=== PATIENT | female | born 1950 | race Caucasian/White ===

== ENCOUNTER 2024-04-17 08:28 | Emergency (ER) | payer MEDICARE, SELFPAY ==
--- NOTE | 2024-04-17 09:00 | XR_ITS ---
Examination: PA lateral chest 2 views TECHNIQUE: Upright PA lateral chest 2 views Exam date and time: April 17, 2024 0913 hours INDICATIONS: Fever beginning 2 days ago. FINDINGS: More pronounced parenchymal disease in the lingular segment left upper lobe Normal heart size Lungs are clear IMPRESSION: Suspicious for pneumonia in the lingular segment left upper lobe
--- NOTE | 2024-04-17 09:05 | EDRME_ITS ---
Rapid Medical Screening Exam [facility] Arrival date/time: 04/17/24 08:28 74-year-old female with a history of asthma, hyperlipidemia, and a chronic smoker of 20 years presents to the emergency room with a chief complaint of shortness of breath, fevers, congestion x 2 weeks. Patient states she has been seen by her primary care provider and has failed multiple treatments for her pneumonia. I have greeted and performed a focused initial assessment of this patient. A comprehensive ED assessment and evaluation of the patient, analysis of all test results, and completion of the medical decision making process will be conducted by additional ED providers. Chief Complaint: Shortness of Breath/Dyspnea Vital signs reviewed by provider: Yes
[2024-04-17 09:11] VITALS: BP 106/69; PULSE 107; RESP 20; TEMP 37.1; O2SAT 94; BMI 23.7
[2024-04-17 09:34] LABS: Basophils # (Auto) 0.1 Thou/mm3 (0.0-0.2); Basophils % (Auto) 1 % (0-2.5); Eosinophils # (Auto) 0.1 Thou/mm3 (0.0-0.5); Eosinophils % (Auto) 1 % (0-10); Hematocrit 44.1 % (36.0-46.0); Immature Granulocytes % (Auto) 0 % (0-0); Immature Granulocytes Auto 0.03 Thou/mm3 (0.00-0.00); Lymphocytes # (Auto) 2.6 Thou/mm3 (1.0-4.8); Lymphocytes % (Auto) 25 % (10-50); Mean Corpuscular Hemoglobin 29.9 pg (25.0-35.0); Mean Corpuscular Volume 88 fL (80-100); Monocytes % (Auto) 10 % (0-12); Neutrophils # (Auto) 6.5 Thou/mm3 (1.8-7.7); Neutrophils % (Auto) 63 % (37-80); Nucleated Red Blood Cell % 0 /100 WBC (0); Platelet Count 251 Thou/mm3 (140-440); RDW Standard Deviation 47.2 fL (36.4-46.3); Red Blood Count 5.01 Miln/mm3 (4.00-5.20); White Blood Count 10.3 Thou/mm3 (3.6-11.0)
[2024-04-17] MEDS: DEXAMETHASONE SOD PHOS INJ 10 MG/ML VIAL PO (09:47)
[2024-04-17 09:52] LABS: Alanine Aminotransferase 13 U/L (10-49); Albumin, Serum 4.6 gm/dL (3.4-4.8); Albumin/Globulin Ratio 1.7 (1.2-2.2); Alkaline Phosphatase 85 U/L (46-116); Anion Gap 7 (7-16); Aspartate Amino Transferase 14 U/L (0-34); BUN/Creatinine Ratio 11 Ratio (12-20); Bilirubin,Total 0.5 mg/dL (0.3-1.2); Blood Urea Nitrogen 9 mg/dL (9-23); Calcium 9.7 mg/dL (8.3-10.6); Calcium (Corrected) 9.7 mg/dL (8.5-10.1); Carbon Dioxide 27.2 mMol/L (20.0-31.0); Chloride 104 mMol/L (98-107); Creatinine (Component) 0.8 mg/dL (0.6-1.3); Estimated Creatinine Clearance 61.8 mL/min (>60); Globulin 2.7 gm/dL (2.3-3.5); Glucose 168 mg/dL (74-106); Osmolality,Calculated 278 (275-295); Sodium 138 mMol/L (136-145); Total Protein 7.3 gm/dL (5.7-8.2); eGFR > 60 See Note
--- NOTE | 2024-04-17 10:02 | EDNOTE_ITS ---
ED SOB =RME/HPI General Chief Complaint: Shortness of Breath/Dyspnea Stated Complaint: SOB X 20 days, had PNA, fever Time Seen by Provider: 04/17/24 09:58 Source: patient Arrival date/time: 04/17/24 08:28 74-year-old female with a history of asthma, hyperlipidemia, and a chronic smoker of 20 years presents to the emergency room with a chief complaint of shortness of breath, fevers, congestion x 2 weeks. Patient states she has been seen by her primary care provider and has failed multiple treatments for her pneumonia. Mode of arrival: ambulatory Limitations: no limitations RME / HPI RME / HPI Narrative: 04/17/24 08:28 74-year-old female with a history of asthma, hyperlipidemia, and a chronic smoker of 20 years presents to the emergency room with a chief complaint of shortness of breath, fevers, congestion x 2 weeks. Patient states she has been seen by her primary care provider and has failed multiple treatments for her pneumonia. I have greeted and performed a focused initial assessment of this patient. A comprehensive ED assessment and evaluation of the patient, analysis of all test results, and completion of the medical decision making process will be conducted by additional ED providers. Related Data Home Medications ?Medication ?Instructions ?Recorded ?Confirmed estradiol 0.01% (0.1 mg/gram) 2 g vaginal DIRECTED 11/15/22 01/14/23 vaginal cream (Estrace) ibuprofen 200 mg tablet 200 mg PO QDAY PRN 11/15/22 01/14/23 losartan 25 mg tablet 25 mg PO QDAY 11/15/2201/14 [id number]-[id number] 8 mg-folic 400 1 tab PO QDAY 01/14/23 mcg-K 50 mcg-lutein 300 mcg tablet (Centrum Silver Women) nitrofurantoin 100 mg PO QDAY 11/15/2201/02 monohydrate/macrocrystals 100 mg capsule (Macrobid) rosuvastatin 10 mg tablet (Crestor) 10 mg PO QDAY 11/0201/14/23 sertraline 25 mg tablet (Zoloft) 25 mg PO QDAY 3 01/14/23 Previous Rx's ?Medication ?Instructions ?Recorded acetaminophen 325 mg capsule 650 mg (2 x 325 mg) PO QI D PRN 04/17/24 fever or pain 7 days #30 caps albuterol sulfate 90 mcg/actuation 2 inh inhalation Q6 H PRN shortness 04/17/24 breath activated powder inhaler of breath or wheezing #1 ea benzonatate 100 mg capsule 100 mg PO BID PRN cough #14 caps 04/17/24 Allergies Allergy/AdvReac Type Severity Reaction Status Date / Time metronidazole Allergy Unknown ITCHING Verified 04/17/24 10:47 levaquin Allergy Unknown unknown Uncoded 04/17/24 10:47 Review of Systems Review of Systems Systems Reviewed: All systems reviewed, normal except as documented Constitutional Constitutional: Reports system reviewed and no additional complaints, except as documented, Denies fatigue, Reports fever(s), Denies headache(s) and Reports weakness Eyes Eyes: Reports system reviewed and no additional complaints, except as documented, Denies blurry vision and Denies change in vision ENT Ears, Nose, Mouth, and Throat: Reports system reviewed and no additional complaints, except as documented, Denies otalgia, Denies headache(s), Denies nasal congestion, Denies throat swelling and Denies vertigo Cardiovascular Cardiovascular: Reports system reviewed and no additional complaints, except as documented, Denies chest pain, Reports dyspnea and Reports dyspnea on exertion Respiratory Respiratory: Reports system reviewed and no additional complaints, except as documented, Reports chest congestion, Reports cough, Reports dyspnea, Reports dyspnea on exertion, Reports excessive phlegm production, Denies hemoptysis, Denies pain on inspiration and Reports wheezing Gastrointestinal Gastrointestinal: Reports system reviewed and no additional complaints, except as documented, Denies abdominal pain, Denies cramping, Denies nausea and Denies vomiting Genitourinary Genitourinary: Reports system reviewed and no additional complaints, except as documented Musculoskeletal Musculoskeletal: Reports system reviewed and no additional complaints, except as documented and Denies back pain Integumentary/Breasts Skin/Breast: Reports system reviewed and no additional complaints, except as documented and Denies wounds Neurologic Neurologic: Reports system reviewed and no additional complaints, except as documented, Denies confusion, Denies headache(s), Denies lack of coordination, Denies vertigo and Reports weakness Psychiatric Psychiatric: Reports system reviewed and no additional complaints, except as documented, Denies anxiety, Denies confusion, Denies depression, Denies paranoia, Denies suicidal ideation and Denies tactile hallucinations Endocrine Endocrine: Reports system reviewed and no additional complaints, except as documented and Denies fatigue Hematologic/Lymphatic Hematologic/Lymphatic: Reports system reviewed and no additional complaints, except as documented and Denies lymphadenopathy Allergic/Immunologic Allergic/Immunologic: Reports system reviewed and no additional complaints, except as documented, Denies throat swelling, Denies urticaria and Reports wheezing ED Exam General Limitations: Present no limitations General appearance: Present alert and in no apparent distress Head Head exam: Present atraumatic Eye Eye exam: Present normal appearance, PERRL and EOMI ENT ENT exam: Present normal exam, normal oropharynx and mucous membranes moist Neck Neck exam: Present normal inspection, full ROM and trachea midline Chest Chest inspection: Present normal inspection and symmetric chest wall rise Respiratory Respiratory exam: Present normal lung sounds bilaterally and wheezes; Absent respiratory distress, stridor, accessory muscle use or prolonged expiratory phase Expanded Respiratory Exam Location: Left: wheezes, Right: wheezes, Upper: wheezes and Lower: wheezes Cardiovascular Cardiovascular exam: Present regular rate, normal rhythm, tachycardia and normal heart sounds; Absent bradycardia or irregular rhythm Abdominal Exam Abdominal exam: Present soft and normal bowel sounds; Absent tenderness Extremities Exam Extremities exam: Present normal inspection and full ROM Back Exam Back exam: Present normal inspection and full ROM Neurological Exam Neurological exam: Present alert, oriented X3 and CN II-XII intact Psychiatric Psychiatric exam: Present normal affect and normal mood Skin Skin exam: Present warm, dry, intact and normal color Course Quality Measures none Orders Category Date Time Status Bedside COVID-19 Antigen Test NOW Care 04/17/24 09:00 Active Bedside Influenza A&B Antigen Test NOW Care 04/17/24 09:00 Completed XR chest 2V Stat Exams 04/17/24 09:00 Completed CBC Stat Lab 04/17/24 09:10 Completed CMP [Comprehensive Metabolic Panel] Stat Lab 04/17/24 09:10 Completed Magnesium Stat Lab 04/17/24 09:10 Completed Albuterol/Ipratr Rt Najma [Duoneb Rt Najma] Med 04/17/24 09:00 Discontinued 3 ml INH X1 ONE Dexamethasone Inj [Decadron Inj] Med 04/17/24 09:00 Discontinued 10 mg PO X1 ONE Vital Signs Vital signs: Vital Signs Temperature 98.7 F 04/17/24 09:11 Pulse Rate 107 H 04/17/24 09:11 Respiratory Rate 20 04/17/24 09:11 Blood Pressure 106/69 04/17/24 09:11 Pulse Oximetry (%) 94 L 04/17/24 09:11 Oxygen Delivery Method Room Air 04/17/24 09:11 O2 saturation 94% on room air Procedures -ED Smoking Cessation Time Spent Discussing Smoking Cessation w/Patient (min): 3 Patient Acknowledges Need for Cessation: Yes Shortness of Breath / Dyspnea MDM Narrative MDM Narrative:: 74-year-old female with a history of asthma, hyperlipidemia, and a chronic smoker of 20 years presents to the emergency room with a chief complaint of shortness of breath, fevers, congestion x 2 weeks. Patient states she has been seen by her primary care provider and has failed multiple treatments for her pneumonia. Patient is hemodynamically stable and in no apparent distress. Patient is afebrile, she is not tachypneic, and O2 saturation on room air with exertion is 94%. Physical examination shows bilateral wheezing to the upper and lower lobes. A breathing treatment was completed as well as steroids with improvement to the patient's symptoms. Patient tested positive for COVID-19. Chest x-ray shows bilateral pneumonia. This is a viral pneumonia caused by COVID-19. The patient states she has been on antibiotics for the last 2 weeks with no improvement to her symptoms. Curb 65 score is 1. Patient is nontoxic-appearing she is not using any accessory muscle use. She is a GCS of 15. There is no confusion no tachypnea and her oxygen saturation is 94% on room air with exertion. Patient is a every day smoker of 20 years. Patient denies any COPD. Smoking cessation education was given but patient states the smoking is not causing this. Patient was discharged and educated to follow-up with primary care provider and return to the emergency room for any evidence of worsening signs or symptoms Patient data External records reviewed:: [facility] previous records Clinical information provided by:: patient Social determinants that could affect healthcare access:: none Patient has the following chronic illnesses:: No chronic illnesses How is presenting disease/condition affected by chronic disease/condition?: no chronic disease Evaluation data The following diagnostics were reviewed and interpreted by me:: lab results and radiology exam(s) Lab and/or radiology exams considered but not ordered:: Labs and radiology exams considered and ordered Interpretation Summary: Chest [id number]: More pronounced parenchymal disease in the lingular segment left upper lobe Normal heart size Lungs are clear IMPRESSION: Suspicious for pneumonia in the lingular segment left upper lobe Medications / Prescriptions Medications or Prescriptions considered but not ordered:: Medication given Medication administrations:: Medication Administration History Discontinued Medications Albuterol/Ipratropium (Albuterol/Ipratropium (Duoneb) Rt Najma 3 Ml Nebu) 3 ml INH X1 ONE Stop: 04/17/24 09:01 Last Admin: 04/17/24 10:54 Dose: 3 ml Documented By: RG Dexamethasone Sodium Phosphate (Dexamethasone Sod Phos Inj 10 Mg/Ml Vial) 10 mg PO X1 ONE Stop: 04/17/24 09:01 Last Admin: 04/17/24 09:47 Dose: 10 mg Documented By: OA Medication given Consultations Consultation(s) initiated? (list below): No Diagnosis Shortness of Breath Differential Diagnosis: acute exacerbation of chronic obstructive airways disease, community acquired pneumonia, asthma with exacerbation and other (COVID-19/influenza/upper respiratory infection) Most likely diagnosis given after review of the tests above:: COVID-19 Admission Indicated Admission indicated?: not indicated Admission Request Was there a request for admission?: No Disposition Plan Disposition Plan: Discharge Discharge Attestation Discharge Attestation: The patient and all family members were given an opportunity to ask questions and understood the discharge instructions. Discharge instructions specifically effects, indications for sooner follow up or return to the emergency department, and the expected course of current diagnosis. Patient condition: Stable Discharge Plan Plan Patient Disposition: HOME (Self Care) Disposition Comment: Stable Prescriptions/Referrals Prescriptions/Med Rec: New albuterol sulfate 90 mcg/actuation aerosol powdr breath activated 2 inh inhalation Q6H PRN (Reason: shortness of breath or wheezing) Qty: 1 0RF benzonatate 100 mg capsule 100 mg PO BID PRN (Reason: cough) Qty: 14 0RF acetaminophen 325 mg capsule 650 mg PO QID PRN (Reason: fever or pain) 7 Days Qty: 30 0RF No Action rosuvastatin [Crestor] 10 mg tablet 10 mg PO QDAY losartan 25 mg tablet 25 mg PO QDAY sertraline [Zoloft] 25 mg tablet 25 mg PO QDAY Centrum Silver Women 8 mg iron-400 mcg-50 mcg tablet 1 tab PO QDAY ibuprofen 200 mg tablet 200 mg PO QDAY PRN nitrofurantoin monohyd/m-cryst [Macrobid] 100 mg capsule 100 mg PO QDAY Rx Instructions: must administer with a meal/food estradiol [Estrace] 0.01 % (0.1 mg/gram) cream 2 g vaginal DIRECTED Patient Comments: twice a week Referrals: Julio Cesar Cee MD [Primary Care Provider] - In 1 week Problem List Clinical Impression: COVID-19 Patient/Caregiver Discharge Instructions Education Materials: 2019-nCoV, COVID-19 Prevention Additional Instructions: Please follow-up with your primary care provider in the next 24 to 48 hours. You tested positive for COVID-19. Medication was sent to your pharmacy to help you with your symptoms. For any evidence of worsening signs or symptoms return to the emergency room immediately Print Language: Welsh Stand Alone Forms: Yaima Award Info., Patient Portal Info Letter PA/DECORATIVE ENGRAVER APPRENTICE Supervising Physician LOURDES/ADOLFO Supervising Physician: Dr Gibson
[2024-04-17] MEDS: ALBUTEROL/IPRATROPIUM (Duoneb) RT SOL 3 ML NEBU INH (10:54)
[2024-04-17 10:58] VITALS: PULSE 102; RESP 16; O2SAT 98
== END 2024-04-17 12:20 | disposition home or self-care (01) ==
PROVIDERS: Nurse Practitioner Family; Emergency Provider Emergency Medicine; PCP Family Medicine
DX: U07.1 COVID-19 (principal)
CPT/HCPCS: 36415; 71046; 80053; 83735; 85025; 87400; 87811; 94640; 99283; A9270; J1100

== ENCOUNTER → 2024-05-01 | Outpatient (CLI) | payer MEDICARE, SELFPAY ==
[2024-05-01 15:03] LABS: Collection Type, Urine Clean Catch
[2024-05-01 17:08] LABS: Bilirubin,Urine Negative (Negative); Blood,Urine Negative (Negative); Clarity,Urine Clear (Clear/Hazy); Color,Urine Lt-Yellow (Lt Yel-Yel); Glucose, Urine Negative (Negative); Ketones,Urine Negative (Negative); Leukocyte Esterase,Urine Positive (Negative); Nitrite,Urine Negative (Negative); PH,Urine 5.5 (5.0-7.0); Protein,Urine Negative (Neg - Trace); RBC,Urine 4 /hpf (0-3); Specific Gravity,Urine 1.017 (1.001-1.035); Squamous Epithelial Cell,Urine 7 /hpf (0-5); Urobilinogen,Urine Negative mg/dL (0.0-1.0); WBC,Urine 8 /hpf (0-5)
== END | disposition home or self-care (01) ==
LOC: SLDO 14:58
PROVIDERS: Referring Provider Internal Medicine; Visit Provider Internal Medicine
DX: R30.0 Dysuria (principal)
CPT/HCPCS: 81001; 87077; 87086; 87186

== ENCOUNTER → 2024-06-01 | Outpatient (CLI) | payer MEDICARE, SELFPAY ==
--- NOTE | 2024-06-01 15:25 | XR_ITS ---
Examination: PA lateral chest 2 views TECHNIQUE: Upright PA lateral chest 2 views Exam date and time: June 01, 2024 1536 hours INDICATIONS: Pneumonia history beginning 3 months ago. FINDINGS: Significant opacity left base posteriorly, masslike Right lung clear Normal heart size IMPRESSION: Recommend CT chest without contrast follow-up to assess dense opacity left base
== END | disposition home or self-care (01) ==
PROVIDERS: PCP Family Medicine; Referring Provider Nurse Practitioner Family; Visit Provider Nurse Practitioner Family
DX: R91.8 Other nonspecific abnormal finding of lung field (principal)
CPT/HCPCS: 71046

== ENCOUNTER → 2024-07-07 | Outpatient (CLI) | payer MEDICARE, SELFPAY ==
[2024-07-07 09:34] LABS: Basophils # (Auto) 0.1 Thou/mm3 (0.0-0.2); Basophils % (Auto) 1 % (0-2.5); Eosinophils # (Auto) 0.8 Thou/mm3 (0.0-0.5); Eosinophils % (Auto) 11 % (0-10); Hematocrit 43.7 % (36.0-46.0); Hemoglobin 14.5 g/dL (12.0-16.0); Immature Granulocytes % (Auto) 0 % (0-0); Immature Granulocytes Auto 0.01 Thou/mm3 (0.00-0.00); Lymphocytes # (Auto) 3.2 Thou/mm3 (1.0-4.8); Lymphocytes % (Auto) 43 % (10-50); Mean Corpuscular HGB Conc 33.2 g/dl (31.0-37.0); Mean Corpuscular Hemoglobin 30.3 pg (25.0-35.0); Mean Corpuscular Volume 91 fL (80-100); Monocytes # (Auto) 0.5 Thou/mm3 (0.0-0.8); Monocytes % (Auto) 7 % (0-12); Neutrophils # (Auto) 2.8 Thou/mm3 (1.8-7.7); Neutrophils % (Auto) 38 % (37-80); Nucleated Red Blood Cell % 0 /100 WBC (0); Platelet Count 270 Thou/mm3 (140-440); RDW Standard Deviation 47.9 fL (36.4-46.3); Red Blood Count 4.79 Miln/mm3 (4.00-5.20); White Blood Count 7.4 Thou/mm3 (3.6-11.0)
[2024-07-07 09:39] LABS: Glucose Estimated Average 134 mg/dL (80-131); Hemoglobin A1C 6.3 % Hgb (4.8-6.0)
[2024-07-07 09:50] LABS: Alanine Aminotransferase 12 U/L (10-49); Albumin, Serum 4.3 gm/dL (3.4-4.8); Albumin/Globulin Ratio 1.7 (1.2-2.2); Alkaline Phosphatase 89 U/L (46-116); Anion Gap 8 (7-16); Aspartate Amino Transferase 16 U/L (0-34); BUN/Creatinine Ratio 20 Ratio (12-20); Bilirubin,Total 0.6 mg/dL (0.3-1.2); Blood Urea Nitrogen 14 mg/dL (9-23); Calcium 9.1 mg/dL (8.3-10.6); Calcium (Corrected) 9.1 mg/dL (8.5-10.1); Carbon Dioxide 28.5 mMol/L (20.0-31.0); Chloride 107 mMol/L (98-107); Cholesterol 233 mg/dL (132-200); Creatinine (Component) 0.7 mg/dL (0.6-1.3); Globulin 2.6 gm/dL (2.3-3.5); Glucose 108 mg/dL (74-106); HDL Cholesterol 58 mg/dL (40-60); LDL Cholesterol,Calculated 141 mg/dL (0-130); Osmolality,Calculated 286 (275-295); Potassium 3.9 mMol/L (3.4-5.1); Sodium 143 mMol/L (136-145); Thyroid Stimulating Hormone 2.21 uIU/mL (0.55-4.78); Total Protein 6.9 gm/dL (5.7-8.2); Triglycerides 168 mg/dL (30-150); eGFR > 60 See Note
[2024-07-07 09:54] LABS: T4 (Thyroxine) 6.5 mcg/dL (4.5-10.9)
[2024-07-14 06:42] LABS: Immunoglobulin A 166 mg/dL (70-320); tTG Ab, IgA <1.0 U/mL
== END | disposition home or self-care (01) ==
LOC: COPL 08:12
PROVIDERS: PCP Family Medicine; Referring Provider Family Medicine; Visit Provider Family Medicine
DX: J18.9 Pneumonia, unspecified organism (principal); K90.0 Celiac disease; I10 Essential (primary) hypertension; E11.9 Type 2 diabetes mellitus without complications
CPT/HCPCS: 36415; 80053; 80061; 82784; 83036; 84436; 84443; 85025; 86364

== ENCOUNTER → 2024-07-16 | Outpatient (CLI) | payer MEDICARE, SELFPAY | END | disposition home or self-care (01) | LOC: SLDO 09:23 | PROVIDERS: Referring Provider Family Medicine; Visit Provider Family Medicine | DX: J18.9 Pneumonia, unspecified organism (principal) | CPT/HCPCS: 87205 ==

== ENCOUNTER → 2024-07-21 | Outpatient (CLI) | payer MEDICARE, SELFPAY ==
--- NOTE | 2024-07-21 10:00 | XR_ITS ---
Examination: CT chest, without intravenous contrast. Sagittal and coronal 2-D reconstructions. Exam date and time: July 21, 2024 0956 hours Comparison October 03, 2020 INDICATIONS: Post Covid pneumonia April 2024 persistent coughing and shortness of breath, significant opacity left base posteriorly masslike on chest film June 01, 2024 CTDI:vol (mGy) 9 DLP: (mGycm) 345 Technique: Multiple 3.0 mm axial sections of the chest to been obtained. Bone and lung density settings are obtained. Sagittal and coronal 2-D reconstructions have been obtained. Low dose protocols were performed. One or more of the following dose reduction techniques were used; automated exposure control, adjustment of the mA and/or KV according to patient size, use of iterative reconstruction technique. Findings: No thoracic aortic aneurysm dilatation Pulmonary artery segments are not enlarged Moderate calcification left anterior descending coronary artery No paratracheal tracheobronchial or bronchopulmonary adenopathy 2 mm pulmonary nodule right upper lobe image 67 2 mm pulmonary nodule right upper lobe image 79 No lobar pneumonia or pulmonary mass in the left lower lobe or elsewhere No visualized liver or splenic lesion Absent gallbladder No pancreatic mass No hydronephrosis IMPRESSION: Subcentimeter noncalcified pulmonary nodules, with this study as baseline recommend continued 6 month follow-up CT chest without contrast No pulmonary mass or pneumonia in the left lower lobe or elsewhere identified
== END | disposition home or self-care (01) ==
LOC: CCTX 09:33
PROVIDERS: PCP Family Medicine; Referring Provider Student in an Organized Health Care Education/Training Program; Visit Provider Student in an Organized Health Care Education/Training Program
DX: R91.8 Other nonspecific abnormal finding of lung field (principal)
CPT/HCPCS: 71250

== ENCOUNTER → 2024-09-26 | Outpatient (CLI) | payer MEDICARE, SELFPAY ==
--- NOTE | 2024-09-26 14:45 | XR_ITS ---
Examination: MRI orbit face neck, without contrast Date and time of exam: September 26, 2024, 1517 hours, comparison August 16, 2008 INDICATIONS: Left-sided lump in the neck noticed beginning one month ago Technique: Multiple axial sagittal and coronal images of the orbits face neck have been obtained with the Siemens high-resolution 1.5 Yana MRI scanner. Images obtained include T2-weighted fat-suppressed sagittal sections, TR 3500, TE 46, T2 weighted coronal fat suppressed images, TR 3050, TE 84, T2-weighted transverse fat suppressed images, TR 3260, TE 63, proton density transverse images, TR 4720 TE 46, and T1 weighted coronal images, TR 560, TE 13. Findings: Prominent maxillary sinusitis as well as ethmoid frontal and sphenoid sinusitis All of the images are degraded by patient motion Gross symmetry of the nasopharynx oropharynx Subcentimeter carotid triangle lymph nodes The larynx appears normal Symmetrical thyroid lobes Normal epiglottis No prevertebral soft tissue prominence IMPRESSION: The entire study is significantly limited by patient motion Recommend shorter scan time CT soft tissue neck with intravenous contrast follow-up for best diagnostic assessment
== END | disposition home or self-care (01) ==
LOC: SMRI 14:00
PROVIDERS: Referring Provider Internal Medicine; Visit Provider Internal Medicine
DX: R22.1 Localized swelling, mass and lump, neck (principal)
CPT/HCPCS: 70540

== ENCOUNTER → 2024-10-28 | Outpatient (CLI) | payer MEDICARE, SELFPAY ==
--- NOTE | 2024-10-28 11:00 | XR_ITS ---
Examination: CT soft tissue neck, without intravenous contrast. 2-D coronal reconstructions. 2-D sagittal reconstructions. Date and time of exam :October 28, 2024, 1110 hours, comparison August 02, 2008 INDICATIONS: Patient states left neck lump noticed beginning September 2024. CTDI: vol (mGy):15.2 DLP: (mGycm):472 Technique: 1.25 mm axial sections of the neck of the obtained. Coronal and sagittal reconstructions have been obtained. . Low dose protocols were performed. One or more of the following dose reduction techniques were used; automated exposure control, adjustment of the mA and/or KV according to patient size, use of iterative reconstruction technique. Findings: Significant maxillary antral sphenoid sinusitis Symmetrical submandibular glands Heavy left carotid vascular calcification Nonspecific carotid triangle submental lymphadenopathy Symmetrical parotid glands The larynx appears normal Thyroid lobes are not enlarged Normal epiglottis Significant disc narrowing C4-C5, C5-C6 IMPRESSION: Nonspecific cervical lymphadenopathy Recommend ultrasound soft tissue neck follow-up at the area of concern
--- NOTE | 2024-10-28 11:30 | XR_ITS ---
Examination: CT left shoulder, without contrast. 2-D sagittal reconstructions. 2-D coronal reconstructions. 3-D reconstructions. Date and time of exam:October 28, 2024, 11:07 AM INDICATIONS: Localized swelling and lump in the neck and around the clavicle noticed beginning September 2024 CTDI: vol (mGy):9.23 DLP: (mGycm):196 Technique: Multiple 1.25 mm axial sections of the left shoulder have been obtained. 2-D sagittal and coronal reconstructions have been obtained. 3-D reconstructions have been obtained. Low dose protocols were performed. One or more of the following dose reduction techniques were used; automated exposure control, adjustment of the mA and/or KV according to patient size, use of iterative reconstruction technique. Findings: Mild narrowing glenohumeral joint Mild left shoulder calcific tendinitis No fracture or shoulder dislocation. Moderate osteoarthritis at the left sternoclavicular joint No cortical bone destruction IMPRESSION: Mild osteoarthritis glenohumeral joint Mild left shoulder calcific tendinitis Moderate osteoarthritis left sternoclavicular joint
== END | disposition home or self-care (01) ==
LOC: CCTX 10:45
PROVIDERS: PCP Family Medicine; Referring Provider Student in an Organized Health Care Education/Training Program; Visit Provider Student in an Organized Health Care Education/Training Program
DX: M19.012 Primary osteoarthritis, left shoulder (principal); M75.32 Calcific tendinitis of left shoulder; M19.09 Primary osteoarthritis, other specified site; R59.0 Localized enlarged lymph nodes
CPT/HCPCS: 70490; 73200

== ENCOUNTER 2024-12-12 21:47 | Emergency (ER) | payer MEDICARE, SELFPAY ==
[2024-12-12 21:50] VITALS: BP 142/78; PULSE 104; RESP 17; TEMP 36.8; O2SAT 93
--- NOTE | 2024-12-12 22:22 | EKG_ITS ---
[facility] Test Date: 2024-12-12 Pat Name: BREONNA BHAKTA Department: Room: - Gender: Female Bench Assembly Inspector: : 1950 Requested By: Bg Harris Order Number: [id number] Reading MD: Bg Harris Measurements Intervals [place] Rate: 99 P: 72 [place]: 184 QRS: 74 QRSD: 86 T: 77 QT: 315 QTc: 404 Interpretive Statements SINUS RHYTHM No previous ECG available for comparison /store/S0/[id number]
[2024-12-12 22:58] LABS: Basophils # (Auto) 0.1 Thou/mm3 (0.0-0.2); Basophils % (Auto) 1 % (0-2.5); Eosinophils # (Auto) 0.2 Thou/mm3 (0.0-0.5); Eosinophils % (Auto) 1 % (0-10); Hematocrit 45.4 % (36.0-46.0); Hemoglobin 14.8 g/dL (12.0-16.0); Immature Granulocytes Auto 0.06 Thou/mm3 (0.00-0.00); Lymphocytes # (Auto) 4.1 Thou/mm3 (1.0-4.8); Lymphocytes % (Auto) 35 % (10-50); Mean Corpuscular HGB Conc 32.6 g/dl (31.0-37.0); Mean Corpuscular Hemoglobin 29.4 pg (25.0-35.0); Mean Corpuscular Volume 90 fL (80-100); Monocytes # (Auto) 0.6 Thou/mm3 (0.0-0.8); Monocytes % (Auto) 5 % (0-12); Neutrophils # (Auto) 6.6 Thou/mm3 (1.8-7.7); Neutrophils % (Auto) 57 % (37-80); Nucleated Red Blood Cell # 0.00 Thou/mm3 (0.00-0.00); Nucleated Red Blood Cell % 0 /100 WBC (0); Platelet Count 290 Thou/mm3 (140-440); RDW Standard Deviation 44.7 fL (36.4-46.3); Red Blood Count 5.04 Miln/mm3 (4.00-5.20); White Blood Count 11.6 Thou/mm3 (3.6-11.0)
[2024-12-12 23:13] LABS: INR 0.9 (0.9-1.3); Partial Thromboplastin Time 29.6 Seconds (22.0-36.0); Prothrombin Time 10.0 Seconds (9.0-12.2)
[2024-12-12 23:15] LABS: B-Type Natriuretic Peptide < 20 pg/mL (0-100)
[2024-12-12 23:16] LABS: Alanine Aminotransferase 15 U/L (10-49); Albumin, Serum 5.0 gm/dL (3.4-4.8); Albumin/Globulin Ratio 1.7 (1.2-2.2); Alkaline Phosphatase 90 U/L (46-116); Anion Gap 10 (7-16); Aspartate Amino Transferase 24 U/L (0-34); BUN/Creatinine Ratio 13 Ratio (12-20); Bilirubin,Total 0.3 mg/dL (0.3-1.2); Blood Urea Nitrogen 10 mg/dL (9-23); Calcium 10.0 mg/dL (8.3-10.6); Calcium (Corrected) 10.0 mg/dL (8.5-10.1); Carbon Dioxide 24.0 mMol/L (20.0-31.0); Chloride 105 mMol/L (98-107); Creatinine (Component) 0.8 mg/dL (0.6-1.3); Globulin 2.9 gm/dL (2.3-3.5); Glucose 122 mg/dL (74-106); Magnesium 2.2 mg/dL (1.6-2.6); Osmolality,Calculated 277 (275-295); Potassium 4.3 mMol/L (3.4-5.1); Sodium 139 mMol/L (136-145); Total Protein 7.9 gm/dL (5.7-8.2); Troponin I < 0.020 ng/mL (0.0-0.045); eGFR > 60 See Note
--- NOTE | 2024-12-12 23:59 | PD.EDSOB ---
ED SOB =RME/HPI General Stated Complaint: SOB Time Seen by Provider: 12/12/24 22:20 Arrival date/time: 12/12/24 21:47 RME / HPI RME / HPI Narrative: DR. VALLE MAIN ED EVALUATION: Patient presents for reported public intoxication notes friend of 40 years recently , no reported chest pain, SOB, or syncope arrives for medical clearance and was cited by DPS to F/U with court system. No specific complaints this time. PMH: Asthma, HLD, PNA, COPD PSH: Non-contributory Allergies: Flagyl, Levaquin Social: Positive occasional alcohol, ongoing tobacco use, denies illicit drug abuse Related Data Home Medications ?Medication ?Instructions ?Recorded ?Confirmed estradiol 0.01% (0.1 mg/gram) 2 g vaginal DIRECTED 11/15/22 01/14/23 vaginal cream (Estrace) ibuprofen 200 mg tablet 200 mg PO QDAY PRN 11/15/22 01/14/23 losartan 25 mg tablet 25 mg PO QDAY 11/15/22 01/14/23 [id number] 8 mg-folic 400 1 tab PO QDAY 11/15/22 01/14/23 mcg-K 50 mcg-lutein 300 mcg tablet (Centrum Silver Women) nitrofurantoin 100 mg PO QDAY 11/15/22 01/14/23 monohydrate/macrocrystals 100 mg capsule (Macrobid) rosuvastatin 10 mg tablet (Crestor) 10 mg PO QDAY 11/15/22 01/14/23 sertraline 25 mg tablet (Zoloft) 25 mg PO QDAY 11/15/22 01/14/23 Previous Rx's ?Medication ?Instructions ?Recorded albuterol sulfate 90 mcg/actuation 2 inh inhalation Q6H PRN shortness 04/17/24 breath activated powder inhaler of breath or wheezing #1 ea benzonatate 100 mg capsule 100 mg PO BID PRN cough #14 caps 04/17/24 Allergies Allergy/AdvReac Type Severity Reaction Status Date / Time metronidazole Allergy Unknown ITCHING Verified 04/17/24 10:47 levaquin Allergy Unknown unknown Uncoded 04/17/24 10:47 Review of Systems Review of Systems Systems Reviewed: All systems reviewed, normal except as documented Past Medical History Past Medical History RESPIRATORY: Positive Chronic Obstructive Pulmonary Disease (COPD), Asthma and Pneumonia ED Exam Narrative Physical exam: GEN. APPEARANCE: The patient is alert awake oriented X-3 in no distress, lying down comfortably, does not look ill/toxic. Patient has good eye contact. Patient is cooperative. VITALS: All vitals were reviewed and the pulse ox is 92% on room air which is low according to my interpretation. HEENT: Normocephalic, atraumatic. Pupils are equal and reactive. Oral mucosa is moist. Patent Nares NECK: Supple, nontender, no thyromegaly, no meningismus, no JVD, no step offs CHEST: Symmetrical, atraumatic, and with equal expansion , Nontender on palpation no deformity and no crepitus. CARDIOVASCULAR: Heart regular rhythm no murmur or gallop rub or extra beats. LUNGS: Diminished breath sounds with symmetrical chest rise. No laboring tachypnea or wheezing. No intercostal subcostal retraction. No rales and no rhonchi. ABDOMEN: Soft, flat, nontender to palpation, no guarding or rebound tenderness. There are no abnormal masses palpated. Active and normal bowel sounds. EXTREMITIES: Nontender. No edema. No cyanosis. Patient is able to move all 4 extremities well, with full ROM and good CSM. SKIN: Warm and dry, no jaundice or rashes noted. Minor skin tears of upper extremities MUSCULOSKELETAL: No lubar or midline bony tenderness. There is no CVA tenderness. No paraspinal muscle spasm or tenderness. NEURO: Patient is KENYON x 4, Cranial nerves II through XII grossly intact. There is no focal neurologic deficits noted. GCS is 15, PNS and [employer] appear grossly intact. PSYCHIATRIC: Patient is in normal mood and affect, cooperative, no SI or HI or hallucinations. Course Quality Measures none Orders Category Date Time Status EKG (ED ONLY) *Do not use* NOW Care 12/12/24 22:22 Completed EKG (ED Only) Stat Exams 12/12/24 22:22 Draft Alcohol, Blood Medical Stat Lab 12/12/24 22:45 Completed B-Type Natriuretic Peptide Stat Lab 12/12/24 22:45 Completed Blood Culture (Lab) Stat Lab 12/12/24 22:45 Received CBC Stat Lab 12/12/24 22:45 Completed Comprehensive Metabolic Panel Stat Lab 12/12/24 22:45 Completed Drug Screen,Urine Stat Lab 12/12/24 22:22 Ordered Magnesium Stat Lab 12/12/24 22:45 Completed Partial Thromboplastin Time Stat Lab 12/12/24 22:45 Completed Prothrombin Time with INR Stat Lab 12/12/24 22:45 Completed Troponin I Stat Lab 12/12/24 22:45 Completed Urinalysis, C/S if Indicated Stat Lab 12/12/24 22:22 Ordered TET,DIP/PERT AC (Adult)-Tdap [Boostrix Adult (Tdap) Med 12/13/24 00:08 Discontinued Vacc] 0.5 ml IMI .ONCE ONE Vital Signs Vital signs: Vital Signs Temperature 98.2 F 12/12/24 21:50 Pulse Rate 104 H 12/12/24 21:50 Respiratory Rate 17 12/12/24 21:50 Blood Pressure 142/78 H 12/12/24 21:50 Pulse Oximetry (%) 93 L 12/12/24 21:50 Oxygen Delivery Method Room Air 12/12/24 21:50 Shortness of Breath / Dyspnea MDM Narrative MDM Narrative:: Scribe Attestation: Rachele Smith, joe scribing for and in the presence of Dr. Valle. Provider Notation: Although this document has been carefully reviewed, there may still be some phonetic and other typographical errors. These errors are purely grammatical due to imperfections in the software program and should not be construed in any way to compromise the substance of the patient's medical care during this visit. Patient presents for reported public intoxication notes friend of 40 years recently , no reported chest pain, SOB, or syncope arrives for medical clearance and was cited by DPS to F/U with court system. No specific complaints this time. Please see PE findings. Laboratory markers including CBC demonstrate marginally elevated WBC of 11.6, no anemia or thrombocytopenia. Serum chemistries essentially unremarkable. Troponin I undetected. Patient observed for several hours and remained neurological stable. No critical process identified at this time. Will release in custody of friend with precautionary instructions, and will update Tetanus. Patient data External records reviewed:: [facility] previous records (Reviewed prior ED records from 04/17/24. Patient was seen for COVID-19.) Clinical information provided by:: patient Social determinants that could affect healthcare access:: alcohol use Patient has the following chronic illnesses:: Chronic Obstructive Pulmonary Disease (COPD), Asthma and Pneumonia How is presenting disease/condition affected by chronic disease/condition?: exacerbated by Evaluation data The following diagnostics were reviewed and interpreted by me:: lab results and EKG tracing(s) (EKG at 23:48 shows normal sinus rhythm at 99, normal axis, no ectopy, no signs of acute ischemia, per my interpretation.) Lab and/or radiology exams considered but not ordered:: None Interpretation Summary: See MDM above Medications / Prescriptions Medications or Prescriptions considered but not ordered:: None Medication administrations:: Medication Administration History Discontinued Medications Diphtheria/Tetanus/Acell Pertussis (Diphth,Pertuss(Acell),Tet Vac 0.5 Ml Syr- Adult) 0.5 ml IMi .ONCE ONE Stop: 12/13/24 00:09 See above if any Consultations Consultation(s) initiated? (list below): No Diagnosis Shortness of Breath Differential Diagnosis: acute exacerbation of chronic obstructive airways disease, congestive heart failure, community acquired pneumonia and asthma with exacerbation Most likely diagnosis given after review of the tests above:: Alcohol intoxication, skin tear Admission Indicated Admission indicated?: not indicated Explain why admission is indicated or not indicated:: Patient does not meet admission criteria Admission Request Was there a request for admission?: No Disposition Plan Disposition Plan: Discharge Discharge Attestation Discharge Attestation: The patient and all family members were given an opportunity to ask questions and understood the discharge instructions. Discharge instructions specifically effects, indications for sooner follow up or return to the emergency department, and the expected course of current diagnosis. Patient condition: Stable Discharge Plan Plan Patient Disposition: HOME (Self Care) Prescriptions/Referrals Prescriptions/Med Rec: No Action rosuvastatin [Crestor] 10 mg tablet 10 mg PO QDAY losartan 25 mg tablet 25 mg PO QDAY sertraline [Zoloft] 25 mg tablet 25 mg PO QDAY Centrum Silver Women 8 mg iron-400 mcg-50 mcg tablet 1 tab PO QDAY ibuprofen 200 mg tablet 200 mg PO QDAY PRN nitrofurantoin monohyd/m-cryst [Macrobid] 100 mg capsule 100 mg PO QDAY Rx Instructions: must administer with a meal/food estradiol [Estrace] 0.01 % (0.1 mg/gram) cream 2 g vaginal DIRECTED Patient Comments: twice a week albuterol sulfate 90 mcg/actuation aerosol powdr breath activated 2 inh inhalation Q6H PRN (Reason: shortness of breath or wheezing) Qty: 1 0RF benzonatate 100 mg capsule 100 mg PO BID PRN (Reason: cough) Qty: 14 0RF Referrals: Julio Cesar Cee MD [Primary Care Provider, Family Practice] - In 1 week Problem List Clinical Impression: Alcohol intoxication, Skin tear Patient/Caregiver Discharge Instructions Education Materials: ED Alcohol Intoxication, ED Skin Avulsion Additional Instructions: Avoid excessive alcohol consumption, keep wounds clean and dry. Return if escalating headaches nausea and vomiting or worsening illness. Print Language: Tristanian Stand Alone Forms: [employer] Award Info., Patient Portal Info Letter
[2024-12-13 00:03] VITALS: BP 130/82; PULSE 119; RESP 18; TEMP 36.6; O2SAT 92
[2024-12-13 00:30] LABS: Alcohol, Blood Medical 176.2 mg/dL (0-10.0)
== END 2024-12-13 00:57 | disposition home or self-care (01) ==
PROVIDERS: Emergency Provider Emergency Medicine; PCP Family Medicine
DX: F10.129 Alcohol abuse with intoxication, unspecified (principal); Y90.9 Presence of alcohol in blood, level not specified; E78.5 Hyperlipidemia, unspecified; J44.89 Other specified chronic obstructive pulmonary disease; T14.8XXA Other injury of unspecified body region, initial encounter; X58.XXXA Exposure to other specified factors, initial encounter
CPT/HCPCS: 36415; 80053; 80307; 80320; 81001; 83735; 83880; 84484; 85025; 85610; 85730; 87040; 93005; 99283; G0480

== ENCOUNTER → 2024-12-16 | Outpatient (CLI) | payer MEDICARE, SELFPAY ==
--- NOTE | 2024-12-16 14:23 | XR_ITS ---
EXAMINATION: Left ribs and upright PA chest 5 views TECHNIQUE: Upright PA chest, AP, LPO, RPO, coned AP lower left ribs total 5 views Date and time: December, 1433 hours INDICATIONS: Patient fell 5 days ago with injury to the chest, left rib pain FINDINGS: Normal heart size No pneumothorax Significant osteopenia No acute rib fractures IMPRESSION: No pneumothorax pulmonary contusion or hemothorax No acute rib fractures
== END | disposition home or self-care (01) ==
LOC: CDIM 14:12
PROVIDERS: PCP Family Medicine; Referring Provider Family Medicine; Visit Provider Family Medicine
DX: S29.9XXA Unspecified injury of thorax, initial encounter (principal); W19.XXXA Unspecified fall, initial encounter
CPT/HCPCS: 71101

== ENCOUNTER 2025-03-01 16:28 | Emergency (ER) | payer MEDICARE, SELFPAY ==
[2025-03-01 16:43] VITALS: BP 155/83; PULSE 114; RESP 20; TEMP 36.8; O2SAT 95
--- NOTE | 2025-03-01 16:50 | PD.EDRME ---
Rapid Medical Screening Exam E Arrival date/time: 03/01/25 16:28 75-year-old female with no known medical history presents to the emergency room with a chief complaint of abdominal cramping x 2 days. Patient also states she has been unable to urinate for the last 2 days I have greeted and performed a focused initial assessment of this patient. A comprehensive ED assessment and evaluation of the patient, analysis of all test results, and completion of the medical decision making process will be conducted by additional ED providers. Chief Complaint: Urogenital-Female Time Seen by Provider: 03/01/25 20:40 Vital signs: Vital Signs Temperature 98.2 F 03/01/25 16:43 Pulse Rate 114 H 03/01/25 16:43 Respiratory Rate 20 03/01/25 16:43 Blood Pressure 155/83 H 03/01/25 16:43 Pulse Oximetry (%) 95 03/01/25 16:43 Oxygen Delivery Method Room Air 03/01/25 16:43 Vital signs reviewed by provider: Yes Exam: Lower abdominal tenderness with palpation Clear bilateral lung sounds Clinical Impression: Acute urinary retention/UTI
[2025-03-01 17:04] LABS: Collection Type, Urine Clean Catch
[2025-03-01 17:14] LABS: Basophils # (Auto) 0.1 Thou/mm3 (0.0-0.2); Basophils % (Auto) 1 % (0-2.5); Eosinophils # (Auto) 0.0 Thou/mm3 (0.0-0.5); Eosinophils % (Auto) 0 % (0-10); Hematocrit 43.7 % (36.0-46.0); Hemoglobin 14.4 g/dL (12.0-16.0); Immature Granulocytes Auto 0.03 Thou/mm3 (0.00-0.00); Lymphocytes # (Auto) 4.0 Thou/mm3 (1.0-4.8); Lymphocytes % (Auto) 34 % (10-50); Mean Corpuscular HGB Conc 33.0 g/dl (31.0-37.0); Mean Corpuscular Hemoglobin 29.6 pg (25.0-35.0); Mean Corpuscular Volume 90 fL (80-100); Monocytes # (Auto) 0.8 Thou/mm3 (0.0-0.8); Monocytes % (Auto) 6 % (0-12); Neutrophils # (Auto) 6.8 Thou/mm3 (1.8-7.7); Neutrophils % (Auto) 58 % (37-80); Nucleated Red Blood Cell # 0.00 Thou/mm3 (0.00-0.00); Nucleated Red Blood Cell % 0 /100 WBC (0); Platelet Count 269 Thou/mm3 (140-440); RDW Standard Deviation 46.3 fL (36.4-46.3); Red Blood Count 4.87 Miln/mm3 (4.00-5.20); White Blood Count 11.7 Thou/mm3 (3.6-11.0)
[2025-03-01 17:18] LABS: Bacteria,Urine Rare; Bilirubin,Urine Negative (Negative); Blood,Urine 1+ (Negative); Clarity,Urine Turbid (Clear/Hazy); Color,Urine Yellow (Lt Yel-Yel); Glucose, Urine Negative (Negative); Ketones,Urine Trace (Negative); Leukocyte Esterase,Urine Positive (Negative); Nitrite,Urine Negative (Negative); PH,Urine 5.5 (5.0-7.0); Protein,Urine Trace (Neg - Trace); RBC,Urine 6 /hpf (0-3); Specific Gravity,Urine 1.028 (1.001-1.035); Squamous Epithelial Cell,Urine 1 /hpf (0-5); Urobilinogen,Urine 2.0 mg/dL (0.0-1.0); WBC,Urine 29 /hpf (0-5)
[2025-03-01 17:29] LABS: Alanine Aminotransferase 11 U/L (10-49); Albumin, Serum 4.6 gm/dL (3.4-4.8); Albumin/Globulin Ratio 1.5 (1.2-2.2); Alkaline Phosphatase 102 U/L (46-116); Anion Gap 8 (7-16); Aspartate Amino Transferase < 8 U/L (0-34); BUN/Creatinine Ratio 16 Ratio (12-20); Bilirubin,Total 0.3 mg/dL (0.3-1.2); Blood Urea Nitrogen 13 mg/dL (9-23); Calcium 10.0 mg/dL (8.3-10.6); Calcium (Corrected) 10.0 mg/dL (8.5-10.1); Carbon Dioxide 25.8 mMol/L (20.0-31.0); Chloride 108 mMol/L (98-107); Creatinine (Component) 0.8 mg/dL (0.6-1.3); Globulin 3.0 gm/dL (2.3-3.5); Glucose 87 mg/dL (74-106); Lipase 36 U/L (12-53); Osmolality,Calculated 282 (275-295); Potassium 3.9 mMol/L (3.4-5.1); Sodium 142 mMol/L (136-145); Total Protein 7.6 gm/dL (5.7-8.2); eGFR > 60 See Note
[2025-03-01 20:30] VITALS: PULSE 84; TEMP 36.8; O2SAT 99
--- NOTE | 2025-03-01 20:39 | PD.EDFMALE ---
ED Female Urogenital RME/HPI General Chief complaint: Urogenital-Female Stated complaint: UNABLE TO URINATE,STABBING PAIN WHEN URINATING Time Seen by Provider: 03/01/25 20:40 Arrival date/time: 03/01/25 16:28 RME / HPI RME / HPI Narrative: 03/01/25 16:28 75-year-old female with no known medical history presents to the emergency room with a chief complaint of abdominal cramping x 2 days. Patient also states she has been unable to urinate for the last 2 days I have greeted and performed a focused initial assessment of this patient. A comprehensive ED assessment and evaluation of the patient, analysis of all test results, and completion of the medical decision making process will be conducted by additional ED providers. --------- Dr. Paulino?s Main ED Evaluation: 75yo female presents to the ED for a chief complaint of dysuria x yesterday. Patient states she woke up yesterday morning and had significant dysuria, describing her pain as stabbing in nature. Patient's symptoms persisted despite taking Azo pills, so she came in for evaluation. Patient denies any fever, chills, back pain, N/V, or any other associated symptoms. Patient notes she recently finished a course of Keflex 2 days ago for an eye infection. Related Data Home Medications ?Medication ?Instructions ?Recorded ?Confirmed estradiol 0.01% (0.1 mg/gram) 2 g vaginal DIRECTED 11/15/22 01/14/23 vaginal cream (Estrace) ibuprofen 200 mg tablet 200 mg PO QDAY PRN 11/15/22 01/14/23 losartan 25 mg tablet 25 mg PO QDAY 11/15/22 01/14/23 yrbmnfbu-weys-rarc 8 mg-folic 400 1 tab PO QDAY 11/15/22 01/14/23 mcg-K 50 mcg-lutein 300 mcg tablet (Centrum Silver Women) nitrofurantoin 100 mg PO QDAY 11/15/22 01/14/23 monohydrate/macrocrystals 100 mg capsule (Macrobid) rosuvastatin 10 mg tablet (Crestor) 10 mg PO QDAY 11/15/22 01/14/23 sertraline 25 mg tablet (Zoloft) 25 mg PO QDAY 11/15/22 01/14/23 Previous Rx's ?Medication ?Instructions ?Recorded albuterol sulfate 90 mcg/actuation 2 inh inhalation Q6H PRN shortness 04/17/24 breath activated powder inhaler of breath or wheezing #1 ea benzonatate 100 mg capsule 100 mg PO BID PRN cough #14 caps 04/17/24 nitrofurantoin macrocrystal 100 mg 100 mg PO BID 5 days #10 caps 03/01/25 capsule Allergies Allergy/AdvReac Type Severity Reaction Status Date / Time metronidazole Allergy Unknown ITCHING Verified 03/01/25 16:34 levaquin Allergy Unknown unknown Uncoded 03/01/25 16:34 Review of Systems Review of Systems Systems Reviewed: All systems reviewed, normal except as documented Past Medical History Past Medical History CARDIAC: Negative Congestive Heart Failure RESPIRATORY: Positive Chronic Obstructive Pulmonary Disease (COPD), Asthma and Pneumonia GENITOURINARY: Negative Renal Disease ENDOCRINE: Negative Diabetes Mellitus Type 1 or Diabetes Mellitus Type 2 Social History SMOKING STATUS: Current every day smoker ED Exam Narrative Physical exam: Generally patient is alert and in no obvious distress, heart regular rate and rhythm, lungs clear to auscultation equal bilaterally, abdomen soft bowel sounds present nondistended very mild suprapubic abdominal tenderness without rebound, musculoskeletal exam showed no costovertebral angle tenderness Course Quality Measures none Orders Category Date Time Status Corley [Urinary Catheter] QS Care 03/01/25 16:49 Active CBC Stat Lab 03/01/25 16:56 Completed CMP [Comprehensive Metabolic Panel] Stat Lab 03/01/25 16:56 Completed Lipase Stat Lab 03/01/25 16:56 Completed UA [Urinalysis] Stat Lab 03/01/25 16:55 Completed Urine Culture Stat Lab 03/01/25 16:55 Received Vital Signs Vital signs: Vital Signs Temperature 98.2 F 03/01/25 16:43 Pulse Rate 114 H 03/01/25 16:43 Respiratory Rate 20 03/01/25 16:43 Blood Pressure 155/83 H 03/01/25 16:43 Pulse Oximetry (%) 95 03/01/25 16:43 Oxygen Delivery Method Room Air 03/01/25 16:43 Urogenital - Female MDM Narrative MDM Narrative:: Scribe Attestation: 03/01/25 - Ellen Smith am scribing for and in the presence of Dr. Paulino. Urine shows 29 WBCs and rare bacteria. Patient is symptomatic from a urinary tract infection. I do not believe this patient have pyelonephritis. Patient is asking for an antibiotic at this time. She will be given Rocephin 1 g IM and started on Macrobid for her bladder infection. Of note she just got through taking cephalexin for what sounds to be a periorbital cellulitis. Patient is to take the antibiotic as prescribed. Follow-up with her doctor. Return to ER as needed or if condition worsens. Patient data External records reviewed:: [facility] previous records (Per chart review, patient was seen here on 12/12/24 for alcohol intoxication.) Clinical information provided by:: patient Social determinants that could affect healthcare access:: none Patient has the following chronic illnesses:: COPD How is presenting disease/condition affected by chronic disease/condition?: uneffected by Evaluation data The following diagnostics were reviewed and interpreted by me:: lab results Lab and/or radiology exams considered but not ordered:: none Interpretation Summary: See MDM Medications / Prescriptions Medications or Prescriptions considered but not ordered:: none Medication administrations:: see above Consultations Consultation(s) initiated? (list below): No Diagnosis Urogenital Female Differential Diagnosis: other (See MDM) Most likely diagnosis given after review of the tests above:: see clinical impression below Admission Indicated Admission indicated?: not indicated Admission Request Was there a request for admission?: No Disposition Plan Disposition Plan: Discharge Discharge Attestation Discharge Attestation: The patient and all family members were given an opportunity to ask questions and understood the discharge instructions. Discharge instructions specifically effects, indications for sooner follow up or return to the emergency department, and the expected course of current diagnosis. Patient condition: Stable Discharge Plan Plan Patient Disposition: HOME (Self Care) Prescriptions/Referrals Prescriptions/Med Rec: New nitrofurantoin macrocrystal 100 mg capsule 100 mg PO BID 5 Days Qty: 10 0RF Rx Instructions: must administer with a meal/food No Action rosuvastatin [Crestor] 10 mg tablet 10 mg PO QDAY losartan 25 mg tablet 25 mg PO QDAY sertraline [Zoloft] 25 mg tablet 25 mg PO QDAY Centrum Silver Women 8 mg iron-400 mcg-50 mcg tablet 1 tab PO QDAY ibuprofen 200 mg tablet 200 mg PO QDAY PRN nitrofurantoin monohyd/m-cryst [Macrobid] 100 mg capsule 100 mg PO QDAY Rx Instructions: must administer with a meal/food estradiol [Estrace] 0.01 % (0.1 mg/gram) cream 2 g vaginal DIRECTED Patient Comments: twice a week albuterol sulfate 90 mcg/actuation aerosol powdr breath activated 2 inh inhalation Q6H PRN (Reason: shortness of breath or wheezing) Qty: 1 0RF benzonatate 100 mg capsule 100 mg PO BID PRN (Reason: cough) Qty: 14 0RF Referrals: Julio Cesar Cee MD [Primary Care Provider, Family Practice] - In 1 week Problem List Clinical Impression: Urinary tract infection Patient/Caregiver Discharge Instructions Education Materials: ED CYSTITIS Female Adult Additional Instructions: Take the antibiotic as prescribed. Follow-up with your doctor. Return to ER as needed or if condition worsens. Print Language: Irish Stand Alone Forms: [employer] Award Info., Patient Portal Info Letter
== END 2025-03-01 21:04 | disposition home or self-care (01) ==
PROVIDERS: Nurse Practitioner Family; Emergency Provider Emergency Medicine; PCP Family Medicine
DX: N39.0 Urinary tract infection, site not specified (principal)
CPT/HCPCS: 36415; 80053; 81001; 83690; 85025; 87077; 87086; 87186; 96372; 99283; J0696; J3490